=== PATIENT | male | born 1990 | race Two or more races ===

== ENCOUNTER 2025-02-12 15:08 | Emergency (ER) | payer SELFPAY ==
[2025-02-12 15:22] VITALS: BP 126/78; PULSE 67; RESP 16; TEMP 98.4; BMI 32.1
[2025-02-12] MEDS ORDERED: ONDANSETRON 4 MG/2 ML VIAL ONE (16:44)
[2025-02-12] MEDS ORDERED: FAMOTIDINE 20 MG/50 ML IVPB 20 MG/50 ML MG IVPB ONE (16:44)
[2025-02-12 16:47] LABS: ABSOLUTE IMMATURE GRANULOCYTES 0.04 x10^3/uL (0.0-0.031); BASOPHILS # 0.02 x10^3/uL (0.01-0.08); HEMATOCRIT 47.4 % (40.1-51.0); HEMOGLOBIN 15.4 g/dL (13.7-17.5); MCHC 32.5 g/dl (32.3-36.5); MEAN CELL VOLUME 88.6 fl (79.0-92.2); MEAN PLT VOLUME 9.5 fl (9.4-12.4); MONOCYTE # 0.42 x10^3/uL (0.30-0.82); MONOCYTE % 3.2 % (5.3-12.2); PLATELET COUNT 353 x10^3/uL (163-337); RDW 13.5 % (12.0-15.6)
[2025-02-12] MEDS: ONDANSETRON 4 MG/2 ML VIAL IVPUSH ONE (16:50)
[2025-02-12] MEDS: FAMOTIDINE 20 MG/50 ML IVPB 20 MG/50 ML MG IVPB ONE (16:50)
[2025-02-12] MEDS: SODIUM CHLORIDE 0.9% 500 ML INFUS.BAG IV ONE (16:50)
[2025-02-12 17:15] LABS: POTASSIUM 4.1 mmol/L (3.5-5.1)
[2025-02-12 17:19] LABS: CALCIUM 10.7 mg/dL (8.5-10.1)
[2025-02-12 17:20] LABS: ALBUMIN 4.3 g/dl (3.4-5.0); BLOOD UREA NITROGEN 12.4 mg/dL (7-18)
[2025-02-12 17:23] LABS: CREATININE 1.1 mg/dL (0.55-1.3)
[2025-02-12 17:24] LABS: BILIRUBIN,TOTAL 1.4 mg/dL (0.2-1); TOT PROT 8.3 g/dl (6.4-8.2)
[2025-02-12] MEDS ORDERED: METOCLOPRAMIDE HCL INJECTION 10 MG/2 ML VIAL ONE (17:25)
[2025-02-12] MEDS: METOCLOPRAMIDE HCL INJECTION 10 MG/2 ML VIAL IVPB ONE (17:33)
[2025-02-12 18:10] LABS: HIV INTERPRETATION NEGATIVE (NEGATIVE)
[2025-02-12 18:11] LABS: HCV DIAGNOSTIC IN-HOUSE W/RFLX REACTIVE (NONREACTIVE)
== END 2025-02-12 19:44 | disposition home or self-care (01) ==
LOC: JER 15:08
PROC: 3E033GC Introduction of Other Therapeutic Substance into Peripheral Vein, Percutaneous Approach (ICD-10-PCS; principal; 2025-02-12)
PROC: 3E033GC Introduction of Other Therapeutic Substance into Peripheral Vein, Percutaneous Approach (ICD-10-PCS; 2025-02-12)
PROC: 3E033GC Introduction of Other Therapeutic Substance into Peripheral Vein, Percutaneous Approach (ICD-10-PCS; 2025-02-12)
DX: K29.70 Gastritis, unspecified, without bleeding (principal); F12.988 Cannabis use, unspecified with other cannabis-induced disorder; R11.2 Nausea with vomiting, unspecified; R10.13 Epigastric pain; R07.89 Other chest pain
CPT/HCPCS: 36415; 71046-TC-FY; 76705-TC; 80053; 83690; 84484; 85025; 86803; 87389; 87522; 93005; 93010; 99285-25